=== PATIENT | female | born 1950 | race African-American/Black ===

== ENCOUNTER 2020-06-10 02:14 | Emergency (ER) | payer MEDICAID ==
[~2020-06-10] VITALS: Ht 172.7 cm; Wt 76.0 kg
[2020-06-10 02:36] VITALS: BP 141/72
[2020-06-10] MEDS ORDERED: IBUPROFEN 800MG TABLET PO ONE (06:45)
== END 2020-06-10 10:35 | disposition home or self-care (01) ==
LOC: ER 03:45
DX: M54.40 Lumbago with sciatica, unspecified side (principal); I10 Essential (primary) hypertension; Z59.0 Homelessness
CPT/HCPCS: 99282

== ENCOUNTER 2020-06-10 22:05 | Emergency (ER) | payer MEDICAID ==
[~2020-06-10] VITALS: Ht 170.2 cm; Wt 85.0 kg
[2020-06-10 23:28] VITALS: BP 121/70
[2020-06-11] MEDS ORDERED: ACETAMINOPHEN 325MG TABLET PO ONE (00:15)
== END 2020-06-11 01:08 | disposition home or self-care (01) ==
LOC: ER 22:05
DX: M79.605 Pain in left leg (principal); M79.604 Pain in right leg; I10 Essential (primary) hypertension; Z59.0 Homelessness
CPT/HCPCS: 99281

== ENCOUNTER 2020-06-11 20:54 | Emergency (ER) | payer MEDICAID ==
[~2020-06-11] VITALS: Ht 172.7 cm; Wt 76.0 kg
[2020-06-11 21:34] VITALS: BP 144/90
[2020-06-11] MEDS ORDERED: ACETAMINOPHEN 500MG TABLET PO ONE (22:15)
== END 2020-06-13 01:36 | disposition left against medical advice (07) ==
LOC: ER 20:54
DX: M79.606 Pain in leg, unspecified (principal); I10 Essential (primary) hypertension; Z59.0 Homelessness
CPT/HCPCS: 99281

== ENCOUNTER 2020-06-13 05:10 | Emergency (ER) | payer MEDICAID, OTHER ==
[~2020-06-13] VITALS: Ht 165.1 cm; Wt 66.0 kg
[2020-06-13 06:02] VITALS: BP 145/60
[2020-06-13] MEDS ORDERED: IBUPROFEN 600MG TABLET PO ONE (09:00)
== END 2020-06-13 09:26 | disposition home or self-care (01) ==
LOC: ER 05:10
DX: M54.5 Low back pain (principal); G89.29 Other chronic pain; I10 Essential (primary) hypertension
CPT/HCPCS: 99281

== ENCOUNTER 2024-02-02 08:25 | Emergency (ER) | payer OTHER ==
[~2024-02-02] VITALS: Ht 172.7 cm; Wt 68.0 kg
[2024-02-02 08:27] VITALS: O2SAT 98
[2024-02-02] MEDS: IBUPROFEN 600MG TABLET PO ONE (09:15)
[2024-02-02 13:50] VITALS: BP 138/78; PULSE 79; RESP 18; TEMP 98.4
== END 2024-02-02 14:00 | disposition home or self-care (01) ==
LOC: ER 08:25
DX: M79.642 Pain in left hand (principal); M25.532 Pain in left wrist; I10 Essential (primary) hypertension
CPT/HCPCS: 73110; 73130; 99284

== ENCOUNTER 2024-02-09 23:24 | Emergency (ER) | payer OTHER ==
[~2024-02-09] VITALS: Ht 170.2 cm; Wt 76.3 kg
[2024-02-09 23:36] VITALS: O2SAT 100
[2024-02-09 23:37] VITALS: O2SAT 98
[2024-02-10 01:34] LABS: BASOPHILS % 0.8 % (0.0-2.0); EOSINOPHILS % 6.2 % (0.0-5.0); HEMOGLOBIN. 12.4 g/dL (12.0-16.0); LYMPHOCYTES % 30.2 % (20.0-50.0); MEAN CORPUSCULAR HEMOGLOBIN 33.3 pg (28.0-32.0); MEAN CORPUSCULAR HGB CONC 33.5 g/dL (31.0-37.0); MEAN CORPUSCULAR VOLUME 99.5 fL (81.0-99.0); MEAN PLATELET VOLUME 9.1 fl (7.4-10.4); MONOCYTES % 7.6 % (2.0-8.0); NEUTROPHILS % 55.2 % (40.0-76.0); PLATELET 299 x1000/uL (130-400); RED BLOOD CELL COUNT 3.72 mill/uL (4.2-5.4); RED CELL DISTRIBUTION WIDTH 13.3 % (11.6-14.6); WHITE BLOOD COUNT 8.9 x1000/uL (4.5-11.0)
[2024-02-10 01:36] LABS: CHLORIDE 106 mEq/L (98-107); POTASSIUM 4.5 mEq/L (3.5-5.1); SODIUM 139 mEq/L (136-145)
[2024-02-10 01:37] LABS: CALCIUM 10.5 mg/dL (8.7-10.4); CARBON DIOXIDE 30 mEq/L (21-32)
[2024-02-10 01:42] LABS: CREATININE 1.2 mg/dL (0.6-1.0); GLUCOSE 92 mg/dL (70-105); UREA NITROGEN BLOOD 17 mg/dL (9-23)
[2024-02-10 01:44] LABS: ALANINE AMINOTRANSFERASE 15 IU/L (10-49); ALBUMIN 4.9 g/dL (3.2-4.8); ASPARTATE AMINOTRANSFERASE 24 IU/L (<34); BILIRUBIN TOTAL 0.3 mg/dL (0.1-1.0); PROTEIN TOTAL 8.5 g/dL (6.0-8.3)
[2024-02-10 03:58] VITALS: BP 157/76; PULSE 68; RESP 18; TEMP 98
== END 2024-02-10 05:02 | disposition home or self-care (01) ==
LOC: ER 23:24 → EDBEDREQ 02-10 01:52 → EDBEDREQTM 02-10 01:52 → ER 02-10 05:02 → CANBEDREQ 02-10 05:43
DX: R53.1 Weakness (principal); M79.671 Pain in right foot; M79.672 Pain in left foot; I10 Essential (primary) hypertension
CPT/HCPCS: 36415; 80053; 85025; 99283